=== PATIENT | male | born 1995 | race Two or more races ===

== ENCOUNTER 2019-02-09 03:48 | Emergency (ER) | payer SELFPAY ==
[~2019-02-09] VITALS: Ht 170.2 cm; Wt 77.1 kg
[2019-02-09] MEDS ORDERED: ACCU-CHEK COMFORT CURVE STRIP VI ONE (04:15)
[2019-02-09 04:17] VITALS: BP 112/62
[2019-02-09] MEDS ORDERED: SODIUM CHLORIDE 0.9% 2,000 ML IV ONE (04:30)
[2019-02-09] MEDS ORDERED: ONDANSETRON HCL 4 MG/2 ML VIAL IV ONE (04:30)
[2019-02-09 04:46] LABS: Basophils # (auto) 0.1 uL; Basophils % (auto) 0.7 % (0.0-2.0); Eosinophils # (auto) 0.3 uL; Eosinophils % (auto) 3.4 % (0.0-7.0); Hematocrit 40.8 % (41.0-53.0); Lymphocytes # (auto) 3.3 uL; Lymphocytes % (auto) 39.5 % (10.0-50.0); Mean Corpuscular Hemoglobin 31.2 pg (28.0-32.0); Mean Corpuscular Hgb Conc. 34.3 g/dL (32.0-36.0); Mean Corpuscular Volume 90.9 fL (80.0-100.0); Monocytes # (auto) 0.7 uL; Monocytes % (auto) 8.3 % (0.0-12.0); Neutrophils # (auto) 4.1 uL; Neutrophils % (auto) 48.1 % (37.0-80.0); Nucleated Red Blood Cells % 0.1 %; Platelet Count (auto) 231 10^3/uL (140-450); Red Blood Cells 4.49 10^6/uL (4.5-5.90); Red Cell Distribution Width 13.5 % (11.8-14.3); White Blood Cell 8.5 10^3/uL (4.4-10.8)
[2019-02-09 05:03] LABS: Alanine Aminotransferase 36 U/L (16-61); Albumin 3.6 g/dL (3.4-5.0); Anion Gap 10 (5-15); Aspartate Aminotransferase 42 U/L (15-37); BUN/Creatinine Ratio 20.5; Blood Urea Nitrogen 23 mg/dL (7-18); Calcium 8.1 mg/dL (8.5-10.1); Carbon Dioxide 24 mmol/L (21-32); Chloride 107 mmol/L (98-107); GFR African American 105 mL/min; GFR Non-African American 87 mL/min; Glucose 97 mg/dL (74-106); Potassium 3.4 mmol/L (3.5-5.1); Sodium 141 mmol/L (136-145)
[2019-02-09 05:06] LABS: Alkaline Phosphatase 78 U/L (45-117); Bilirubin, Total 0.7 mg/dL (0.2-1.0); Total Protein 6.6 g/dL (6.4-8.2)
[2019-02-09] MEDS ORDERED: POTASSIUM EFFERVESENT TAB 25 MEQ PO ONE (05:45)
== END 2019-02-09 05:48 | disposition home or self-care (01) ==
LOC: ER 03:52
DX: E86.0 Dehydration (principal); R11.2 Nausea with vomiting, unspecified; Z90.89 Acquired absence of other organs
CPT/HCPCS: 36415; 80053; 80320; 82962; 85025; 96361; 96374; 99283; J2405; J7030

== ENCOUNTER 2024-03-25 19:19 | Emergency (ER) | payer MEDICAID, OTHER ==
[~2024-03-25] VITALS: Ht 172.7 cm; Wt 82.0 kg
[2024-03-25 19:35] VITALS: BP 143/80; PULSE 98; RESP 18; O2SAT 96
== END 2024-03-26 22:22 | disposition left against medical advice (07) ==
LOC: ER 19:19
DX: R11.2 Nausea with vomiting, unspecified (principal); R19.7 Diarrhea, unspecified; Z53.21 Procedure and treatment not carried out due to patient leaving prior to being seen by health care provider

== ENCOUNTER 2024-11-14 11:29 | Emergency (ER) | payer MEDICAID ==
[~2024-11-14] VITALS: Ht 170.2 cm; Wt 46.3 kg
[2024-11-14] MEDS: ACETAMINOPHEN 325 MG TAB PO ONE (15:44)
[2024-11-14] MEDS: KETOROLAC TROMETH 30 MG/ML 1ML VIAL IM ONE (15:45)
--- NOTE | 2024-11-14 16:13 | DVH ---
INDICATION: fall COMPARISON: None TECHNIQUE: 4 views of the cervical spine were obtained. FINDINGS: The cervical vertebral alignment is normal. The predental space is normal. The intervertebral disc spaces are well-maintained. No significant facet arthropathy is noted. No acute fracture, vertebral compression deformity or aggressive osseous lesions. The imaged lung apices are unremarkable. IMPRESSION: No acute fracture.
--- NOTE | 2024-11-14 16:21 | ED.PDOC ---
History of Present Illness HPI Comments 28-year-old male presents with left-sided neck pain after falling off a roof 2 days ago. Patient reports that his left side of his neck is tender. He denies any neurologic issues. He denies syncope. Chief Complaint: Neck Pain Time Seen by MD: 12:55 Primary Care Provider: NONE Allergies: Coded Allergies: NO KNOWN ALLERGIES (Unverified , 05/30/14) Mode of Arrival: Ambulatory Past Medical History PAST MEDICAL HISTORY: Denies Surgical History: Appendectomy Family History Family History: Unknown Social History Smoker: Non-Smoker Alcohol: Denies ETOH Use Drugs: Denies Drug Use Lives In: Home All Other Systems: Reviewed and Negative Physical Exam General Appearance: No Apparent Distress, Normal HEENT: Normal ENT Inspection, Pharynx Normal, TMs Normal Neck: Full Range of Motion, Non-Tender, Normal, Normal Inspection Respiratory: Chest Non-Tender, Lungs Clear, No Accessory Muscle Use, No Respiratory Distress, Normal Breath Sounds Cardiovascular: No Edema, No JVD, No Murmur, No Gallop, Normal Peripheral Pulses, Regular Rate/Rhythm Breast Exam: Deferred Gastrointestinal: No Organomegaly, Non Tender, No Pulsatile Mass, Normal Bowel Sounds, Soft Genitalia: Deferred Pelvic: Deferred Rectal: Deferred Extremities: No calf tenderness, Normal capillary refill, Normal inspection, Normal range of motion, Non-tender, No pedal edema Musculoskeletal : Apperance: Normal Neurologic: Alert, director behavioral health II-XII nml as Tested, No Motor Deficits, Normal Affect, Normal Mood, No Sensory Deficits Cerebellar Function: Normal Reflexes: Normal Skin: Dry, Normal Color, Warm Lymphatic: No Adenopathy Was a procedure done? Was a procedure done?: No Differential Dx Considerations may include: Muscle strain, cervical fracture X-Ray, Labs, Meds, VS Vital Signs Date Time Temp Pulse Resp B/P (MAP) Pulse Ox O2 Delivery O2 Flow Rate FiO2 11/14/24 15:51 73 18 128/84 (99) 97 11/14/24 15:44 97.9 11/14/24 14:34 84 18 136/84 (101) 97 11/14/24 12:00 97.5 77 18 123/67 (85) 98 97.5 Current Medications Medications (Trade) Dose Ordered Sig/Leighton Route Start Time Stop Time Status Last Admin Ketorolac Tromethamine (Toradol Injection) 15 mg ONCE ONCE IM 11/14/24 15:30 11/14/24 15:31 DC 11/14/24 15:45 Acetaminophen (Tylenol Tablet) 650 mg ONCE ONCE PO 11/14/24 15:30 11/14/24 15:31 DC 11/14/24 15:44 Time of 1ST Reevaluation: 16:20 Reevaluation 1ST: Improved Patient Education/Counseling: Diagnosis, Treatment Family Education/Counseling: No Family Present Departure 1 Departure Time of Disposition: 16:20 (Patient likely with cervical strain after fall. Patient's x-rays are benign.) Impression: Primary Impression: Cervical strain, acute Qualified Codes: S16.1XXA - Strain of muscle, fascia and tendon at neck level, initial encounter Disposition: HOME / SELF CARE / HOMELESS Condition: Stable Additional Instructions: You have cervical radiculopathy and cervical strain. This is inflammation of your cervical nerve. For pain you can take the followinam: Ibuprofen 400mg with food Noon: Acetaminophen 1000mg 4pm: Ibuprofen 400mg with food 8pm: Acetaminophen 1000mg You can wear a soft collar for comfort. You should follow up with your regular doctor within 1 week. If your symptoms worsen or you have any other concerns then please return to the ER. Discharged With: Self Critical Care Note Critical Care Time?: No Stability Stability form required: TAYLOR Reyes MD Nov 14, 2024 16:21
[2024-11-14 16:30] VITALS: BP 128/84; PULSE 73; RESP 17; O2SAT 97
[2024-11-14 16:33] VITALS: TEMP 97.9
== END 2024-11-14 16:33 | disposition home or self-care (01) ==
LOC: ER 11:35
DX: S16.1XXA Strain of muscle, fascia and tendon at neck level, initial encounter (principal); Z90.49 Acquired absence of other specified parts of digestive tract; W13.2XXA Fall from, out of or through roof, initial encounter; Y93.89 Activity, other specified; Y92.89 Other specified places as the place of occurrence of the external cause; Y99.8 Other external cause status
CPT/HCPCS: 72040; 96372; 99283; J1885; J7030

== ENCOUNTER 2025-05-08 03:53 | Emergency (ER) | payer MEDICAID ==
[~2025-05-08] VITALS: Ht 170.2 cm; Wt 96.8 kg
[2025-05-08 03:56] VITALS: BP 118/85; PULSE 84; RESP 20; TEMP 97.2; O2SAT 95
== END 2025-05-08 06:34 | disposition left against medical advice (07) ==
LOC: ER 03:53
DX: J02.9 Acute pharyngitis, unspecified (principal); Z79.899 Other long term (current) drug therapy